=== PATIENT | female | born 1980 | race Caucasian/White ===

== ENCOUNTER 2020-09-03 10:15 | Emergency (ER) | payer SELFPAY ==
[~2020-09-03] VITALS: Ht 157.5 cm; Wt 78.0 kg
[2020-09-03] MEDS ORDERED: ACETAMINOPHEN 325MG TABLET PO ONE (10:45)
[2020-09-03 11:04] LABS: RED BLOOD CELL COUNT 4.26 mill/uL (4.2-5.4)
[2020-09-03 11:05] LABS: BASOPHILS % 0.4 % (0.0-2.0); EOSINOPHILS % 1.2 % (0.0-5.0); HEMATOCRIT. 37.7 % (36.0-48.0); LYMPHOCYTES % 23.4 % (20.0-50.0); MEAN CORPUSCULAR HEMOGLOBIN 30.4 pg (28.0-32.0); MEAN CORPUSCULAR VOLUME 88.6 fL (81.0-99.0); MEAN PLATELET VOLUME 6.9 fl (7.4-10.4); MONOCYTES % 6.7 % (2.0-8.0); NEUTROPHILS % 68.3 % (40.0-76.0); PLATELET 355 x1000/uL (130-400); RED CELL DISTRIBUTION WIDTH 13.3 % (11.6-14.6)
[2020-09-03 11:07] LABS: *AMPHETAMINES SCREEN URINE NEGATIVE (NEGATIVE); *BARBITURATES SCREEN URINE NEGATIVE (NEGATIVE); *BENZODIAZEPINES SCREEN URINE NEGATIVE (NEGATIVE); *COCAINE SCREEN URINE NEGATIVE (NEGATIVE)
[2020-09-03 11:08] LABS: CANNABINOID URINE SCREEN NEGATIVE (NEGATIVE); METHADONE URINE SCREEN NEGATIVE (NEGATIVE); OPIATES URINE SCREEN NEGATIVE (NEGATIVE); PHENCYCLIDINE URINE SCREEN NEGATIVE (NEGATIVE)
[2020-09-03 11:11] LABS: CHLORIDE 108 mEq/L (98-107)
[2020-09-03 11:34] LABS: B-HCG QUANTITATIVE 13195 mIU/mL (<3)
[2020-09-03 12:02] LABS: CLARITY URINE TURBID (CLEAR); COLOR URINE RED (YELLOW); KETONES URINE NEGATIVE (NEGATIVE); LEUKOCYTE ESTERASE URINE 1+ (NEGATIVE); NITRITE URINE NEGATIVE (NEGATIVE); OCCULT BLOOD URINE 3+ (NEGATIVE); PH URINE 7.5 (4.5-8.0); PROTEIN URINE 2+ (NEGATIVE); SPECIFIC GRAVITY URINE 1.022 (1.005-1.030); UROBILINOGEN URINE 0.2 E.U./dL (0.2-1.0)
[2020-09-03] MEDS ORDERED: ACET-2708 MT (13:18)
[2020-09-03] MEDS ORDERED: CEPH500T MT (13:18)
[2020-09-03] MEDS ORDERED: CEPHALEXIN 250MG CAPSULE PO NR (13:30)
[2020-09-03 14:05] VITALS: BP 117/69
== END 2020-09-03 14:07 | disposition home or self-care (01) ==
LOC: ER 10:36
DX: N93.8 Other specified abnormal uterine and vaginal bleeding (principal); N39.0 Urinary tract infection, site not specified
CPT/HCPCS: 36415; 76801; 80053; 80305; 81003; 81025; 84702; 85025; 86850; 86900; 99284

== ENCOUNTER 2020-09-03 19:46 | Emergency (ER) | payer SELFPAY ==
[~2020-09-03] VITALS: Ht 160 cm; Wt 76.0 kg
[~2020-09-03 19:46] MED LIST: ACET-2708 MT; CEPH500T MT
[2020-09-03 20:47] LABS: BASOPHILS % 0.3 % (0.0-2.0); EOSINOPHILS % 1.2 % (0.0-5.0); HEMATOCRIT. 34.3 % (36.0-48.0); HEMOGLOBIN. 11.9 g/dL (12.0-16.0); LYMPHOCYTES % 22.6 % (20.0-50.0); MEAN CORPUSCULAR HEMOGLOBIN 30.5 pg (28.0-32.0); MEAN CORPUSCULAR VOLUME 87.8 fL (81.0-99.0); MEAN PLATELET VOLUME 6.6 fl (7.4-10.4); MONOCYTES % 8.2 % (2.0-8.0); NEUTROPHILS % 67.7 % (40.0-76.0); PLATELET 355 x1000/uL (130-400); RED CELL DISTRIBUTION WIDTH 13.3 % (11.6-14.6)
[2020-09-03 20:54] LABS: CHLORIDE 108 mEq/L (98-107)
[2020-09-03 21:17] LABS: B-HCG QUANTITATIVE 9238 mIU/mL (<3)
[2020-09-04 01:00] VITALS: BP 113/56
[2020-09-04] MEDS ORDERED: POTASSIUM CHLORIDE 20MEQ TABLET SR PO ONE (01:00)
== END 2020-09-04 01:46 | disposition home or self-care (01) ==
LOC: ER 19:46
DX: O02.1 Missed abortion (principal)
CPT/HCPCS: 36415; 76801; 76817; 80053; 81025; 84702; 85025; 86850; 86900; 86901; 99284; Z7610